=== PATIENT | male | born 1955 | race Caucasian/White ===

== ENCOUNTER 2018-10-01 07:30 | Day surgery (SDC) | payer OTHER ==
[~2018-10-01] VITALS: Ht 162.6 cm; Wt 69.5 kg
[2018-10-01 09:05] VITALS: Ht 162.6 cm; Wt 69.5 kg
[2018-10-01] MEDS ORDERED: SIMV5TAB14 PO (09:14)
[2018-10-01] MEDS ORDERED: NAPROXEN PRN (09:14)
[2018-10-01 09:40] VITALS: BP 122/64; PULSE 59; RESP 20
[2018-10-01] MEDS ORDERED: FENTAnyl 50 MCG/ML VIAL ONE (10:31)
[2018-10-01] MEDS ORDERED: MIDAZOLAM 1 MG/ML 2 ML INJ ONE ×2 (10:31)
[2018-10-01 10:44] VITALS: BP 126/85; RESP 20
== END 2018-10-01 11:03 | disposition home or self-care (01) ==
LOC: GIL 07:30
PROVIDERS: ATTEND Internal Medicine Gastroenterology
DX: Z12.11 Encounter for screening for malignant neoplasm of colon (principal); K64.8 Other hemorrhoids
CPT/HCPCS: 45378; J2250; J3010